=== PATIENT | female | born 1950 | race Two or more races ===

== ENCOUNTER 2017-11-12 06:45 | Outpatient (CLI) | payer OTHER | END 2017-11-12 07:03 | disposition home or self-care (01) | LOC: LAB 06:45 | DX: D68.61 Antiphospholipid syndrome (principal); D68.62 Lupus anticoagulant syndrome; I80.222 Phlebitis and thrombophlebitis of left popliteal vein; D51.1 Vitamin B12 deficiency anemia due to selective vitamin B12 malabsorption with proteinuria; I10 Essential (primary) hypertension; E03.8 Other specified hypothyroidism; I83.899 Varicose veins of unspecified lower extremity with other complications; E78.2 Mixed hyperlipidemia; H40.89 Other specified glaucoma; E55.9 Vitamin D deficiency, unspecified; R31.21 Asymptomatic microscopic hematuria; R73.01 Impaired fasting glucose; D50.8 Other iron deficiency anemias; F33.2 Major depressive disorder, recurrent severe without psychotic features ==

== ENCOUNTER 2018-07-13 08:18 | Outpatient (CLI) | payer OTHER | END 2018-07-13 08:42 | disposition home or self-care (01) | LOC: LAB 08:18 | DX: D68.61 Antiphospholipid syndrome (principal); D68.62 Lupus anticoagulant syndrome; I80.222 Phlebitis and thrombophlebitis of left popliteal vein; D51.1 Vitamin B12 deficiency anemia due to selective vitamin B12 malabsorption with proteinuria; I10 Essential (primary) hypertension; E03.8 Other specified hypothyroidism; I83.899 Varicose veins of unspecified lower extremity with other complications; E78.2 Mixed hyperlipidemia; H40.89 Other specified glaucoma; F33.2 Major depressive disorder, recurrent severe without psychotic features; E55.9 Vitamin D deficiency, unspecified; R31.21 Asymptomatic microscopic hematuria; R73.01 Impaired fasting glucose; D68.8 Other specified coagulation defects; D50.8 Other iron deficiency anemias; K90.89 Other intestinal malabsorption ==

== ENCOUNTER 2018-11-30 08:19 | Outpatient (CLI) | payer OTHER | END 2018-11-30 08:44 | disposition home or self-care (01) | LOC: LAB 08:19 | DX: E03.8 Other specified hypothyroidism (principal); D68.62 Lupus anticoagulant syndrome; I80.222 Phlebitis and thrombophlebitis of left popliteal vein; D51.1 Vitamin B12 deficiency anemia due to selective vitamin B12 malabsorption with proteinuria; I10 Essential (primary) hypertension; I83.899 Varicose veins of unspecified lower extremity with other complications; E78.2 Mixed hyperlipidemia; H40.89 Other specified glaucoma; F33.2 Major depressive disorder, recurrent severe without psychotic features; E55.9 Vitamin D deficiency, unspecified; R31.21 Asymptomatic microscopic hematuria; R73.01 Impaired fasting glucose; D50.8 Other iron deficiency anemias; D51.8 Other vitamin B12 deficiency anemias; D68.8 Other specified coagulation defects; K90.89 Other intestinal malabsorption ==

== ENCOUNTER 2019-06-07 08:07 | Outpatient (CLI) | payer OTHER | END 2019-06-07 08:18 | disposition home or self-care (01) | LOC: LAB 08:07 | DX: D68.62 Lupus anticoagulant syndrome (principal); I80.222 Phlebitis and thrombophlebitis of left popliteal vein; D51.1 Vitamin B12 deficiency anemia due to selective vitamin B12 malabsorption with proteinuria; I10 Essential (primary) hypertension; E03.8 Other specified hypothyroidism; I83.899 Varicose veins of unspecified lower extremity with other complications; E78.2 Mixed hyperlipidemia; H40.89 Other specified glaucoma; F33.2 Major depressive disorder, recurrent severe without psychotic features; E55.9 Vitamin D deficiency, unspecified; R31.21 Asymptomatic microscopic hematuria; R73.01 Impaired fasting glucose; D68.8 Other specified coagulation defects; D50.8 Other iron deficiency anemias; R97.0 Elevated carcinoembryonic antigen [CEA] ==

== ENCOUNTER → 2019-12-06 07:24 | Outpatient (CLI) | payer OTHER | END | disposition home or self-care (01) | LOC: LAB 07:24 | PROVIDERS: ATTEND Internal Medicine Hematology & Oncology | DX: D50.8 Other iron deficiency anemias (principal); I10 Essential (primary) hypertension; D68.62 Lupus anticoagulant syndrome; I80.222 Phlebitis and thrombophlebitis of left popliteal vein; D51.1 Vitamin B12 deficiency anemia due to selective vitamin B12 malabsorption with proteinuria; E03.8 Other specified hypothyroidism; I83.899 Varicose veins of unspecified lower extremity with other complications; E78.2 Mixed hyperlipidemia; H40.89 Other specified glaucoma; F33.2 Major depressive disorder, recurrent severe without psychotic features; E55.9 Vitamin D deficiency, unspecified; R31.21 Asymptomatic microscopic hematuria; R73.01 Impaired fasting glucose; D51.8 Other vitamin B12 deficiency anemias; R97.0 Elevated carcinoembryonic antigen [CEA] ==

== ENCOUNTER 2020-06-08 06:25 | Outpatient (CLI) | payer OTHER | END 2020-06-08 06:38 | disposition home or self-care (01) | LOC: LAB 06:25 | PROVIDERS: ATTEND Internal Medicine Hematology & Oncology | DX: D50.8 Other iron deficiency anemias (principal); I10 Essential (primary) hypertension; D51.8 Other vitamin B12 deficiency anemias; E55.9 Vitamin D deficiency, unspecified; E03.8 Other specified hypothyroidism; R97.0 Elevated carcinoembryonic antigen [CEA]; R97.8 Other abnormal tumor markers; D68.62 Lupus anticoagulant syndrome; I80.222 Phlebitis and thrombophlebitis of left popliteal vein; D51.1 Vitamin B12 deficiency anemia due to selective vitamin B12 malabsorption with proteinuria; I83.899 Varicose veins of unspecified lower extremity with other complications; E78.2 Mixed hyperlipidemia; H40.89 Other specified glaucoma; R31.21 Asymptomatic microscopic hematuria; R73.01 Impaired fasting glucose; F33.2 Major depressive disorder, recurrent severe without psychotic features ==

== ENCOUNTER 2020-12-07 06:23 | Outpatient (CLI) | payer OTHER | END 2020-12-07 06:24 | disposition home or self-care (01) | LOC: LAB 06:23 | PROVIDERS: ATTEND Internal Medicine Hematology & Oncology | DX: D68.61 Antiphospholipid syndrome (principal); D51.1 Vitamin B12 deficiency anemia due to selective vitamin B12 malabsorption with proteinuria; I10 Essential (primary) hypertension; E03.9 Hypothyroidism, unspecified; E55.9 Vitamin D deficiency, unspecified; R97.0 Elevated carcinoembryonic antigen [CEA]; R79.9 Abnormal finding of blood chemistry, unspecified; R74.02 Elevation of levels of lactic acid dehydrogenase [LDH]; E78.2 Mixed hyperlipidemia; R31.21 Asymptomatic microscopic hematuria; R73.01 Impaired fasting glucose; I80.222 Phlebitis and thrombophlebitis of left popliteal vein ==

== ENCOUNTER 2021-06-05 06:33 | Outpatient (CLI) | payer OTHER | END 2021-06-05 06:34 | disposition home or self-care (01) | LOC: LAB 06:33 | PROVIDERS: ATTEND Internal Medicine Hematology & Oncology | DX: D50.8 Other iron deficiency anemias (principal); R79.89 Other specified abnormal findings of blood chemistry; I10 Essential (primary) hypertension; R74.02 Elevation of levels of lactic acid dehydrogenase [LDH]; K76.89 Other specified diseases of liver; D51.8 Other vitamin B12 deficiency anemias; E55.9 Vitamin D deficiency, unspecified; E03.8 Other specified hypothyroidism; R97.0 Elevated carcinoembryonic antigen [CEA]; R97.8 Other abnormal tumor markers; D68.61 Antiphospholipid syndrome; I80.222 Phlebitis and thrombophlebitis of left popliteal vein; D51.1 Vitamin B12 deficiency anemia due to selective vitamin B12 malabsorption with proteinuria; I83.899 Varicose veins of unspecified lower extremity with other complications; E78.2 Mixed hyperlipidemia; H40.89 Other specified glaucoma; F33.2 Major depressive disorder, recurrent severe without psychotic features; R31.21 Asymptomatic microscopic hematuria; R73.01 Impaired fasting glucose ==

== ENCOUNTER 2021-12-09 06:53 | Outpatient (CLI) | payer OTHER | END 2021-12-09 07:05 | disposition home or self-care (01) | LOC: LAB 06:53 | PROVIDERS: ATTEND Internal Medicine Hematology & Oncology | DX: D50.8 Other iron deficiency anemias (principal); R79.9 Abnormal finding of blood chemistry, unspecified; I10 Essential (primary) hypertension; R74.02 Elevation of levels of lactic acid dehydrogenase [LDH]; K76.89 Other specified diseases of liver; D51.8 Other vitamin B12 deficiency anemias; E55.9 Vitamin D deficiency, unspecified; E03.8 Other specified hypothyroidism; R97.0 Elevated carcinoembryonic antigen [CEA]; I83.899 Varicose veins of unspecified lower extremity with other complications ==

== ENCOUNTER → 2022-06-03 06:36 | Outpatient (CLI) | payer OTHER | END | disposition home or self-care (01) | LOC: LAB 06:36 | PROVIDERS: ATTEND Internal Medicine Hematology & Oncology | DX: D50.8 Other iron deficiency anemias (principal); R79.9 Abnormal finding of blood chemistry, unspecified; I10 Essential (primary) hypertension; R74.02 Elevation of levels of lactic acid dehydrogenase [LDH]; K76.89 Other specified diseases of liver; D51.8 Other vitamin B12 deficiency anemias; E55.9 Vitamin D deficiency, unspecified; E03.8 Other specified hypothyroidism; C50.919 Malignant neoplasm of unspecified site of unspecified female breast; R97.8 Other abnormal tumor markers; R97.0 Elevated carcinoembryonic antigen [CEA]; D68.61 Antiphospholipid syndrome; I80.222 Phlebitis and thrombophlebitis of left popliteal vein; D51.1 Vitamin B12 deficiency anemia due to selective vitamin B12 malabsorption with proteinuria; E03.9 Hypothyroidism, unspecified; I83.899 Varicose veins of unspecified lower extremity with other complications; E78.2 Mixed hyperlipidemia; H40.9 Unspecified glaucoma; F33.2 Major depressive disorder, recurrent severe without psychotic features; R31.21 Asymptomatic microscopic hematuria; R73.01 Impaired fasting glucose ==

== ENCOUNTER → 2022-09-29 08:32 | Outpatient (CLI) | payer OTHER | END | disposition home or self-care (01) | LOC: LAB 08:32 | PROVIDERS: ATTEND Internal Medicine Hematology & Oncology | DX: D68.61 Antiphospholipid syndrome (principal); I80.222 Phlebitis and thrombophlebitis of left popliteal vein; D51.1 Vitamin B12 deficiency anemia due to selective vitamin B12 malabsorption with proteinuria; I10 Essential (primary) hypertension; E03.9 Hypothyroidism, unspecified; I83.899 Varicose veins of unspecified lower extremity with other complications; E78.2 Mixed hyperlipidemia; H40.9 Unspecified glaucoma; F33.2 Major depressive disorder, recurrent severe without psychotic features; E55.9 Vitamin D deficiency, unspecified; R31.21 Asymptomatic microscopic hematuria; R73.01 Impaired fasting glucose; D50.8 Other iron deficiency anemias; D51.8 Other vitamin B12 deficiency anemias; D68.8 Other specified coagulation defects ==

== ENCOUNTER 2023-09-29 08:40 | Outpatient (CLI) | payer OTHER ==
[2023-09-29 10:07] LABS: HEMATOCRIT 36.4 % (36.0-45.00); HEMOGLOBIN 12.5 g/dL (12.0-15.00); MEAN CELL VOLUME 90.4 fL (80.00-100.00); MEAN CORPUSCULAR HGB CONC 34.3 g/dl (32.0-36.0); PLATELET COUNT 145 K/uL (150-450); RED BLOOD COUNT 4.03 M/uL (4.00-6.00); RED CELL DISTRIBUTION WIDTH 13.8 % (11.5-14.5)
[2023-09-29 10:47] LABS: ALBUMIN 4.1 gm/dL (3.4-5.0); BILIRUBIN TOTAL 0.42 mg/dL (0.3-1.2); CALCIUM 9.9 mg/dL (8.5-10.1); CREATININE SERUM 0.84 mg/dL (0.55-1.02); GFR 66.28; GLOBULINA 3.2 G/DL (2.4-3.5); POTASSIUM 4.35 mEq/L (3.5-5.1); T4 FREE 0.96 NG/ML (0.76-1.46); TOTAL PROTEIN 7.3 gm/dL (6.4-8.2); TSH 1.22 uIU/mL (0.358-3.74)
[2023-09-29 13:36] LABS: FOLIC ACID > 20.00 ng/ml (4.78-20); VITAMIN D3 25 HYDROXY 35.49 ng/ml (30-120)
[2023-09-29 14:31] LABS: MANUAL PLATELET COUNT 280
[2023-09-29 14:32] LABS: PLATELET ESTIMATE NORMAL (NORMAL)
[2023-09-30 09:08] LABS: CA 15-3 22.5 U/mL (0.0-25.0)
== END 2023-09-29 08:43 | disposition home or self-care (01) ==
LOC: LAB 08:40
PROVIDERS: ATTEND Internal Medicine Hematology & Oncology
DX: D50.8 Other iron deficiency anemias (principal); R79.9 Abnormal finding of blood chemistry, unspecified; I10 Essential (primary) hypertension; R74.02 Elevation of levels of lactic acid dehydrogenase [LDH]; K76.89 Other specified diseases of liver; D51.8 Other vitamin B12 deficiency anemias; E55.9 Vitamin D deficiency, unspecified; E03.8 Other specified hypothyroidism; C50.919 Malignant neoplasm of unspecified site of unspecified female breast; R97.8 Other abnormal tumor markers; C25.9 Malignant neoplasm of pancreas, unspecified; C56.9 Malignant neoplasm of unspecified ovary; R97.1 Elevated cancer antigen 125 [CA 125]; R97.0 Elevated carcinoembryonic antigen [CEA]; D68.61 Antiphospholipid syndrome; I80.222 Phlebitis and thrombophlebitis of left popliteal vein; D51.1 Vitamin B12 deficiency anemia due to selective vitamin B12 malabsorption with proteinuria; I83.899 Varicose veins of unspecified lower extremity with other complications; E78.2 Mixed hyperlipidemia; H40.9 Unspecified glaucoma; R31.21 Asymptomatic microscopic hematuria; R73.01 Impaired fasting glucose; Z86.010 Personal history of colon polyps

== ENCOUNTER 2024-03-30 06:49 | Outpatient (CLI) | payer OTHER ==
[2024-03-30 07:36] LABS: HEMATOCRIT 34.2 % (36.0-45.00); HEMOGLOBIN 11.7 g/dL (12.0-15.00); MEAN CELL VOLUME 89.8 fL (80.00-100.00); MEAN CORPUSCULAR HEMOGLOBIN 30.8 pg (27.00-32.0); MEAN CORPUSCULAR HGB CONC 34.2 g/dl (32.0-36.0); PLATELET COUNT 138 K/uL (150-450); RED BLOOD COUNT 3.81 M/uL (4.00-6.00); RED CELL DISTRIBUTION WIDTH 13.8 % (11.5-14.5)
[2024-03-30 08:19] LABS: % SATURACION 23.6 % (15-50); BILIRUBIN TOTAL 0.56 mg/dL (0.3-1.2); CALCIUM 9.1 mg/dL (8.5-10.1); CREATININE SERUM 0.88 mg/dL (0.55-1.02); FERRITIN 43.9 NG/ML (8-252); GFR 62.81; GLOBULINA 2.8 G/DL (2.4-3.5); POTASSIUM 3.9 mEq/L (3.5-5.1); T4 FREE 1.04 NG/ML (0.76-1.46); TOTAL PROTEIN 6.8 gm/dL (6.4-8.2); TSH 0.922 uIU/mL (0.358-3.74)
[2024-03-30 09:28] LABS: MANUAL PLATELET COUNT 234
[2024-03-30 09:29] LABS: PLATELET ESTIMATE NORMAL (NORMAL)
[2024-03-30 11:58] LABS: FOLIC ACID > 20.00 ng/ml (4.78-20); VITAMIN D3 25 HYDROXY 40.88 ng/ml (30-120)
[2024-03-31 09:11] LABS: CA 125 13.8 U/mL (0.0-38.1); CA 15-3 20.4 U/mL (0.0-25.0); CA 19-9 11 U/mL (0-35)
[2024-04-02 17:05] LABS: dRVVT 52.5 sec (0.0-47.0); interp Comment: (.); ptt-la 33.1 sec (0.0-43.5)
== END 2024-03-30 06:57 | disposition home or self-care (01) ==
LOC: LAB 06:49
PROVIDERS: ATTEND Internal Medicine Hematology & Oncology
DX: D68.61 Antiphospholipid syndrome (principal); I80.222 Phlebitis and thrombophlebitis of left popliteal vein; D51.1 Vitamin B12 deficiency anemia due to selective vitamin B12 malabsorption with proteinuria; I10 Essential (primary) hypertension; E03.9 Hypothyroidism, unspecified; I83.899 Varicose veins of unspecified lower extremity with other complications; E78.2 Mixed hyperlipidemia; H40.9 Unspecified glaucoma; F33.9 Major depressive disorder, recurrent, unspecified; E55.9 Vitamin D deficiency, unspecified; R31.21 Asymptomatic microscopic hematuria; R97.0 Elevated carcinoembryonic antigen [CEA]; Z86.010 Personal history of colon polyps; D50.8 Other iron deficiency anemias; R79.9 Abnormal finding of blood chemistry, unspecified; R74.02 Elevation of levels of lactic acid dehydrogenase [LDH]; K76.89 Other specified diseases of liver; E03.8 Other specified hypothyroidism

== ENCOUNTER 2024-04-21 06:56 | Outpatient (CLI) | payer OTHER ==
[2024-04-21 07:57] LABS: URINE APPEARANCE Clear; URINE BILIRRUBIN Negative (NEGATIVE); URINE BLOOD Small; URINE COLOR Yellow; URINE GLUCOSE Negative (NEGATIVE); URINE KETONE Negative (NEGATIVE); URINE LEUKOCYTE Small; URINE NITRATE Negative; URINE PROTEIN Negative (NEGATIVE); URINE UROBILINOGEN 0.2 E.U./dl
[2024-04-21 08:00] LABS: URINE EPITHELIAL CELLS 13.7 uL (0.0-38.8); URINE RBC 22.4 uL (0.0-20.8); URINE WBC 10.3 uL (0.0-23.2)
[2024-04-21 08:16] LABS: URINE CAST 1.22 uL (0.0-1.40)
== END 2024-04-21 07:02 | disposition home or self-care (01) ==
LOC: LAB 06:56
PROVIDERS: ATTEND Internal Medicine Hematology & Oncology
DX: D68.62 Lupus anticoagulant syndrome (principal); I80.222 Phlebitis and thrombophlebitis of left popliteal vein; D51.1 Vitamin B12 deficiency anemia due to selective vitamin B12 malabsorption with proteinuria; I10 Essential (primary) hypertension; E03.9 Hypothyroidism, unspecified; I83.899 Varicose veins of unspecified lower extremity with other complications; H40.9 Unspecified glaucoma; F33.2 Major depressive disorder, recurrent severe without psychotic features; E55.9 Vitamin D deficiency, unspecified; R31.21 Asymptomatic microscopic hematuria; R73.01 Impaired fasting glucose; R97.0 Elevated carcinoembryonic antigen [CEA]; Z86.0100 Personal history of colon polyps, unspecified; N39.0 Urinary tract infection, site not specified; R97.8 Other abnormal tumor markers

== ENCOUNTER 2024-11-07 06:43 | Outpatient (CLI) | payer OTHER ==
[2024-11-07 08:20] LABS: HEMATOCRIT 35.4 % (36.0-45.00); HEMOGLOBIN 12.2 g/dL (12.0-15.00); MEAN CELL VOLUME 90.8 fL (80.00-100.00); MEAN CORPUSCULAR HEMOGLOBIN 31.3 pg (27.00-32.0); MEAN CORPUSCULAR HGB CONC 34.5 g/dl (32.0-36.0); PLATELET COUNT 149 K/uL (150-450); RED CELL DISTRIBUTION WIDTH 14.6 % (11.5-14.5)
[2024-11-07 09:17] LABS: ALBUMIN 3.8 gm/dL (3.4-5.0); BILIRUBIN TOTAL 0.24 mg/dL (0.3-1.2); CALCIUM 8.9 mg/dL (8.5-10.1); CREATININE SERUM 0.91 mg/dL (0.55-1.02); GFR 60.26; POTASSIUM 4.05 mEq/L (3.5-5.1); TOTAL PROTEIN 6.8 gm/dL (6.4-8.2)
[2024-11-07 13:29] LABS: FOLIC ACID > 20.00 ng/ml (4.78-20); VITAMIN D3 25 HYDROXY 38.92 ng/ml (30-120)
[2024-11-07 16:50] LABS: % SATURACION 14.3 % (15-50); FERRITIN 42.4 NG/ML (8-252)
[2024-11-08 08:33] LABS: MANUAL PLATELET COUNT 278
[2024-11-08 08:34] LABS: PLATELET ESTIMATE NORMAL (NORMAL)
== END 2024-11-07 06:47 | disposition home or self-care (01) ==
LOC: LAB 06:43
PROVIDERS: ATTEND Internal Medicine Hematology & Oncology
DX: D68.61 Antiphospholipid syndrome (principal); I80.222 Phlebitis and thrombophlebitis of left popliteal vein; D51.1 Vitamin B12 deficiency anemia due to selective vitamin B12 malabsorption with proteinuria; I10 Essential (primary) hypertension; E03.9 Hypothyroidism, unspecified; I83.899 Varicose veins of unspecified lower extremity with other complications; E78.2 Mixed hyperlipidemia; H40.9 Unspecified glaucoma; F33.2 Major depressive disorder, recurrent severe without psychotic features; E55.9 Vitamin D deficiency, unspecified; R31.21 Asymptomatic microscopic hematuria; R73.01 Impaired fasting glucose; R97.0 Elevated carcinoembryonic antigen [CEA]; Z86.0100 Personal history of colon polyps, unspecified; D50.8 Other iron deficiency anemias; R79.9 Abnormal finding of blood chemistry, unspecified; R74.02 Elevation of levels of lactic acid dehydrogenase [LDH]; K76.89 Other specified diseases of liver; C56.9 Malignant neoplasm of unspecified ovary

== ENCOUNTER 2024-11-29 07:20 | Outpatient (CLI) | payer OTHER | END 2024-11-29 07:24 | disposition home or self-care (01) | LOC: TOM 07:20 | PROVIDERS: ATTEND Internal Medicine Hematology & Oncology | DX: D68.61 Antiphospholipid syndrome (principal); I80.222 Phlebitis and thrombophlebitis of left popliteal vein; D51.1 Vitamin B12 deficiency anemia due to selective vitamin B12 malabsorption with proteinuria; I10 Essential (primary) hypertension; E03.9 Hypothyroidism, unspecified; I83.899 Varicose veins of unspecified lower extremity with other complications; E78.2 Mixed hyperlipidemia; H40.9 Unspecified glaucoma; F33.2 Major depressive disorder, recurrent severe without psychotic features; E55.9 Vitamin D deficiency, unspecified; R31.21 Asymptomatic microscopic hematuria; R97.0 Elevated carcinoembryonic antigen [CEA]; Z86.0100 Personal history of colon polyps, unspecified | CPT/HCPCS: 71270; 74178; Q9965 ==

== ENCOUNTER → 2025-03-30 06:36 | Outpatient (CLI) | payer OTHER ==
[2025-03-30 07:48] LABS: BASO % 0.8 % (0.1-1.2); EOS # 0.11 (0.04-0.54); EOS % 2.1 % (0.7-7.0); LYMPH # 1.50 (1.18-3.74); LYMPH % 28.4 % (19.3-53.1); MEAN PLATELET VOLUME 12.70 fl (9.4-12.4); MONO # 0.41 (0.24-0.82); MONO % 7.8 % (4.7-12.5); NEUT # 3.20 (1.56-6.13); NEUT % 60.5 % (34.0-71.1); RED CELL DISTRIBUTION WIDTH 13.8 % (11.6-14.4)
[2025-03-30 09:07] LABS: % SATURACION 28.3 % (15-50); ALT/SGPT 30.0 U/L (12-78); AST/SGOT 35.0 U/L (15-37); BILIRUBIN TOTAL 0.53 mg/dL (0.3-1.2); BUN CREA RATIO 21.0 (7.0-25.0); CREATININE SERUM 0.75 mg/dL (0.55-1.02); FE 81.0 ug/dl (50-170); GFR 75.33; GLOBULINA 3.0 G/DL (2.4-3.5); GLUCOSE FASTING 94.0 mg/dL (65-100); LDH 415.0 U/L (84-246); OSMOLALITY SERUM 288.0 MOSM/KG (275-295); T4 FREE 1.14 NG/ML (0.76-1.46)
[2025-03-30 09:09] LABS: TSH 0.181 uIU/mL (0.358-3.74)
[2025-03-30 13:19] LABS: FOLIC ACID > 20.00 ng/ml (4.78-20)
== END | disposition home or self-care (01) ==
LOC: LAB 06:36
PROVIDERS: ATTEND Internal Medicine Hematology & Oncology
DX: D50.8 Other iron deficiency anemias (principal); R79.9 Abnormal finding of blood chemistry, unspecified; I10 Essential (primary) hypertension; R74.02 Elevation of levels of lactic acid dehydrogenase [LDH]; K76.89 Other specified diseases of liver; E03.8 Other specified hypothyroidism; R97.0 Elevated carcinoembryonic antigen [CEA]; I80.222 Phlebitis and thrombophlebitis of left popliteal vein; D51.1 Vitamin B12 deficiency anemia due to selective vitamin B12 malabsorption with proteinuria; I83.899 Varicose veins of unspecified lower extremity with other complications; E78.2 Mixed hyperlipidemia; H40.9 Unspecified glaucoma; F33.2 Major depressive disorder, recurrent severe without psychotic features; E55.9 Vitamin D deficiency, unspecified; R31.21 Asymptomatic microscopic hematuria; R73.01 Impaired fasting glucose; Z86.0100 Personal history of colon polyps, unspecified; K31.89 Other diseases of stomach and duodenum; K59.00 Constipation, unspecified